=== PATIENT | female | born 1950 | race Caucasian/White ===

== ENCOUNTER 2020-08-03 15:11 | Outpatient (CLI) | payer OTHER, SELFPAY ==
--- NOTE | ~2020-08-03 | MM_ITS ---
EXAMINATION: MM screening christy BI w dav HISTORY: Screening mammogram TECHNIQUE: Craniocaudal and mediolateral oblique 3-D tomosynthesis images were obtained and synthetic 2-D images were generated. CAD analysis was submitted and interpreted. COMPARISON: 07/13/2020, 07/06/2018, 07/03/2017 bilateral digital screening mammogram examinations BREAST PARENCHYMAL COMPOSITION: The breasts are heterogeneously dense, which may obscure small masses . FINDINGS: There are scattered bilateral benign calcifications. There is no evidence of suspicious mas s, calcification, or architectural distortion to suggest malignancy in either breast. There has been no suspicious interval change. IMPRESSION: 1. No mammographic evidence of malignancy. 2. Recommend routine screening mammography in one year. BI-RADS Category 2: Benign finding(s). Reviewed, dictated and finalized at location A. ING TECHNICIAN
--- NOTE | ~2020-08-03 | DEXA_ITS ---
Bone Density Report Name: Melony Parker Age: 69 Sex: Female Ethnicity: White Date of : 1950 Indication: osteopenia; prior fracture; Referring Provider: KIMBERLY CASTANEDA Study: Bone densitometry was performed. Exam Date: August 03, 2020 Accession number: [id number] Bone Density: Region BMD T-score Z-score Classification AP Spine (L1-L4) 0.909 -1.3 0.9 Osteopenia Femoral Neck (Left) 0.699 -1.4 0.5 Osteopenia Total Hip (Left) 0.855 -0.7 0.8 Normal Total Hip Bilateral Avg 0.854 -0.7 0.8 Normal Femoral Neck (Right) 0.676 -1.6 0.3 Osteopenia Total Hip (Right) 0.852 -0.7 0.8 Normal World Health Organization criteria for BMD impression classify patients as: Normal (T-score at or above -1.0), Osteopenia (T-score between -1.0 and -2.5), or Osteoporosis (T-score at or below -2.5). 10-year Fracture Risk(1): Major Osteoporotic Fracture 15% Hip Fracture 2.3% Reported Risk Factors: [place] (), Neck BMD=0.676, BMI=22.2, previous fracture (1) FRAX(R) Version 3.08. Fracture probability calculated for an untreated patient. Fracture probability may be lower if the patient has received treatment. Previous Exams: Region Exam Age BMD T-score BMD Change BMD Change Date g/cm2 vs Baseline vs Previous AP Spine(L1-L4) 08/03/2020 69 0.909 -1.3 -0.077(-7.8%)# 0.065(7.7%)* 07/06/2018 67 0.844 -1.8 -0.142(-14.4%) -0.005(-0.6%) 04/28/2014 63 0.849 -1.8 -0.136(-13.8%) -0.136(-13.8%) 01/23/2005 54 0.986 -0.6 Total Hip(Left) 08/03/2020 69 0.855 -0.7 -0.031(-3.5%)# 0.045(5.5%)* 07/06/2018 67 0.811 -1.1 -0.076(-8.5%)# -0.016(-1.9%) 06/05/2016 65 0.826 -0.9 -0.060(-6.8%)# 0.025(3.1%) 04/28/2014 63 0.802 -1.1 -0.085(-9.5%)# -0.085(-9.5%)# 01/23/2005 54 0.886 -0.5 Total Hip(Right) 08/03/2020 69 0.852 -0.7 -0.023(-2.6%)# 0.026(3.2%) 07/06/2018 67 0.826 -1.0 -0.049(-5.6%)# -0.033(-3.9%)* 06/05/2016 65 0.859 -0.7 -0.015(-1.8%)# 0.032(3.9%)* 04/28/2014 63 0.827 -0.9 -0.048(-5.5%)# -0.048(-5.5%)# 01/23/2005 54 0.874 -0.6 *Denotes significance at 95% confidence level, LSC for AP Spine = 0.022 g/cm2, LSC for Total Hip = 0.027 g/cm2 Clinical Information Provided by Patient: Has had a low trauma fracture Has used the following medications: Vitamin D, Calcium Patient maximum height was 63 Menopause Age: 53 Drinks caffeinated beverages Onset of menses at age 15 Number of children 3
== END 2020-08-03 15:12 | disposition home or self-care (01) ==
LOC: ANHIMG 15:14
PROVIDERS: PCP Internal Medicine; Visit Provider Obstetrics & Gynecology Gynecology
DX: Z12.31 Encounter for screening mammogram for malignant neoplasm of breast (principal); Z78.0 Asymptomatic menopausal state; M85.88 Other specified disorders of bone density and structure, other site; M85.852 Other specified disorders of bone density and structure, left thigh; M85.851 Other specified disorders of bone density and structure, right thigh
CPT/HCPCS: 77063; 77067; 77080